=== PATIENT | male | born 1975 | race African-American/Black ===

== ENCOUNTER 2017-02-10 19:38 | Observation (INO) | payer MEDICAID, OTHER ==
[~2017-02-10] VITALS: Ht 165.1 cm; Wt 67.6 kg
[~2017-02-10 19:38] MED LIST: AGM875T PO; AMOX500C2 PO; AZIT250T81 PO; AZTH250C PO; CEPH500T PO; DICY10CA26 PO; FAMO-119 PO; GFCD10B PO; HYDR-3583 PO; HYDR1TAB PO; METH4TAB PO; NAPR-243; NAPR-243 PO; ONDAN4ODT PO; PNT40TEC PO; PROM25TA14 PO; SULF1TAB38 PO; TRAM50TA2 PO; TRIA16.5 NS
--- OUTSIDE RECORDS SUMMARY | 2017-02-10 19:42 | XMS REPORT ---
Author Author ESSENCE DRISCOLL [facility] eClinicalWorks Address Unknown Phone Unavailable Care Team Providers Care Anesthesiology Faculty Name Role Phone ESSENCE DRISCOLL CP Unavailable Allergies, Adverse Reactions, Alerts Substance Reaction Event Type N.K.D.A. 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 [address]-93 0.05 % Externally Twice a day Jan 29, 2015 1 application to affected area Procedures Procedure Coding System Code Date Office Visit, Est Pt., Level 3 CPT-4 13110 Jan 29, 2015 Vital Signs Date/Time: Jan 29, 2015 Temperature 97.8 F Weight 156.2 lbs Height 66 in BMI 25.21 Index Blood Pressure Diastolic 76 mmHg Blood Pressure Systolic 122 mmHg Cardiac Monitoring Heart Rate 68 bpm Results No Known Results Summary Purpose eClinicalWorks Submission
[2017-02-10] MEDS ORDERED: NS IV 1000 ML 1,000 ML IV ONE (19:47)
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
[2017-02-10 19:55] LABS: BASOPHILS % (AUTO) 1 % (0-10); EOSINOPHILS # (AUTO) 0.2 10^3/uL (0.0-0.3); EOSINOPHILS % (AUTO) 5 % (0-10); LYMPHOCYTES # (AUTO) 1.8 X 10^3 (1.0-4.0); LYMPHOCYTES % (AUTO) 41 % (12-44); MEAN CORPUSCULAR HEMOGLOBIN 32 PG (25-34); MEAN CORPUSCULAR HGB CONC 35 G/DL (32-36); MEAN CORPUSCULAR VOLUME 92 FL (80-99); MEAN PLATELET VOLUME 9.9 FL (7.4-10.4); MONOCYTES # (AUTO) 0.5 X 10^3 (0.0-1.0); MONOCYTES % (AUTO) 11 % (0-12); NEUTROPHILS # (AUTO) 1.9 X 10^3 (1.8-7.8); NEUTROPHILS % (AUTO) 43 % (42-75); PLATELET COUNT 208 10^3/uL (130-400); RED BLOOD COUNT 4.48 10^6/uL (4.35-5.85); RED CELL DISTRIBUTION WIDTH 13.3 % (10.0-14.5); WHITE BLOOD COUNT 4.4 10^3/uL (4.3-11.0)
[2017-02-10 19:58] LABS: BILIRUBIN,URINE NEGATIVE (NEGATIVE); KETONES,URINE NEGATIVE (NEGATIVE); LEUKOCYTE ESTERASE ,URINE 1+ (NEGATIVE); NITRITE,URINE NEGATIVE (NEGATIVE); PH,URINE 7 (5-9); PROTEIN,URINE NEGATIVE (NEGATIVE); UROBILINOGEN,URINE 4 MG/DL (NORMAL)
[2017-02-10 20:14] LABS: WBC,URINE RARE /HPF
[2017-02-10 20:15] LABS: ALANINE AMINOTRANSFERASE 24 U/L (0-55); ALBUMIN 3.9 GM/DL (3.2-4.5); ALCOHOL < 10 MG/DL (<10); ANION GAP 9 MMOL/L (5-14); ASPARTATE AMINO TRANSFERASE 26 U/L (5-34); BILIRUBIN,TOTAL 0.6 MG/DL (0.1-1.0); BLOOD UREA NITROGEN 15 MG/DL (7-18); BUN/CREATININE RATIO 15; CARBON DIOXIDE 27 MMOL/L (21-32); CHLORIDE 104 MMOL/L (98-107); CREATININE SERUM 1.01 MG/DL (0.60-1.30); GFR ESTIMATED > 60; GLUCOSE 99 MG/DL (70-105); POTASSIUM 3.5 MMOL/L (3.6-5.0); SALICYLATE < 5.0 MG/DL (5.0-20.0); SODIUM 140 MMOL/L (135-145); TOTAL PROTEIN 7.2 GM/DL (6.4-8.2)
[2017-02-10 20:25] LABS: ACETAMINOPHEN < 10 UG/ML (10-30)
--- NOTE | 2017-02-10 20:43 | Diagnostic Imaging Report ---
EXAMINATION: Chest radiograph, portable AP view. DATE: February 10, 2017 at 2018 hours. INDICATION: 42-year-old male, altered mental status. Unresponsive. COMPARISON: September 19, 2014. FINDINGS: Heart size and mediastinal contours are unremarkable given technique. There is no identified pneumothorax. There is no large pleural effusion. There is no identified focal airspace consolidation. IMPRESSION: No identified acute cardiopulmonary abnormality. Dictated by: Dictated on workstation # [id number]
--- NOTE | 2017-02-10 20:46 | Diagnostic Imaging Report ---
PROCEDURE: CT head without contrast. TECHNIQUE: Multiple contiguous axial images were obtained through the brain without the use of intravenous contrast. DATE: February 10, 2017. COMPARISON: None. INDICATION: 42-year-old male, altered mental status, unresponsive. FINDINGS: The ventricles and cerebral spinal fluid spaces are of normal size and configuration for the patient's age. There is no mass effect or midline shift. There is no acute intracranial hemorrhage. There is no abnormal extra-axial fluid collection. The visualized portions of the paranasal sinuses, mastoid air cells and middle ears are well aerated. IMPRESSION: 1. No identified acute intracranial abnormality. Dictated by: Dictated on workstation # [id number]
[2017-02-10 22:05] VITALS: BP 120/67
[2017-02-10] MEDS: NS IV 1000 ML 1,000 ML IV SCH (22:14)
[2017-02-10] MEDS ORDERED: IBUPROFEN 800 MG (MOTRIN) TAB PO PRN (22:15)
[2017-02-10] MEDS ORDERED: ONDANSETRON 4 MG/2 ML (SDV) Z0FRAN IV PRN (22:15)
[2017-02-10] MEDS ORDERED: ACETAMINOPHEN 500 MG TAB (TYLENOL) PO PRN (22:15)
[2017-02-11] VITALS: BP 98/58
[2017-02-11 04:00] VITALS: BP 103/57
[2017-02-11] MEDS: NS IV 1000 ML 1,000 ML IV SCH ×2 (04:56→11:35)
[2017-02-11 06:12] LABS: BASOPHILS % (AUTO) 1 % (0-10); EOSINOPHILS # (AUTO) 0.2 10^3/uL (0.0-0.3); EOSINOPHILS % (AUTO) 5 % (0-10); LYMPHOCYTES # (AUTO) 1.6 X 10^3 (1.0-4.0); LYMPHOCYTES % (AUTO) 41 % (12-44); MEAN CORPUSCULAR HEMOGLOBIN 32 PG (25-34); MEAN CORPUSCULAR HGB CONC 35 G/DL (32-36); MEAN CORPUSCULAR VOLUME 92 FL (80-99); MEAN PLATELET VOLUME 9.4 FL (7.4-10.4); MONOCYTES # (AUTO) 0.4 X 10^3 (0.0-1.0); MONOCYTES % (AUTO) 10 % (0-12); NEUTROPHILS # (AUTO) 1.7 X 10^3 (1.8-7.8); NEUTROPHILS % (AUTO) 44 % (42-75); PLATELET COUNT 186 10^3/uL (130-400); RED BLOOD COUNT 4.43 10^6/uL (4.35-5.85)
[2017-02-11 06:27] LABS: ANION GAP 6 MMOL/L (5-14); BLOOD UREA NITROGEN 11 MG/DL (7-18); BUN/CREATININE RATIO 16; CALCIUM 8.1 MG/DL (8.5-10.1); CARBON DIOXIDE 24 MMOL/L (21-32); CHLORIDE 111 MMOL/L (98-107); GFR ESTIMATED > 60; GLUCOSE 88 MG/DL (70-105); POTASSIUM 3.8 MMOL/L (3.6-5.0); SODIUM 141 MMOL/L (135-145)
[2017-02-11] MEDS ORDERED: CATHETER FLUSH 10 ML SYR IV PRN (07:00)
[2017-02-11 08:45] VITALS: BP 121/85
[2017-02-11 11:30] VITALS: BP 126/77
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
--- NOTE | 2017-02-11 14:38 | Discharge Instructions ---
Discharge [facility] Discharge Medications New, Converted or Re-Newed RX: Other (no prescriptions) Patient Instructions Patient Instructions Patient not to take any medications that are not prescribed to him. Keep follow up appointment. Goal/Follow Up Appt: Follow up with Dr. Puri 02/17/17 at 1:40 PM Patient Instructions: Do not take medications not prescribed to you, refrain from marijuana use Activity & Diet Discharge Diet: No Restrictions Activity as Tolerated: Yes CARI MORGAN DO Feb 11, 2017 14:38
== END 2017-02-11 14:30 | disposition home or self-care (01) ==
LOC: EDUNIT# 19:38 → ER 19:38 → UNDOADMOB 21:16 → 4TH 21:16 → UNDODISOB 02-11 16:00
PROVIDERS: ADMIT Pediatrics; ATTEND Pediatrics
DX: R40.0 Somnolence (principal); F13.10 Sedative, hypnotic or anxiolytic abuse, uncomplicated; F12.10 Cannabis abuse, uncomplicated; Z90.5 Acquired absence of kidney
CPT/HCPCS: 36415; 70450; 71010; 80048; 80053; 80306; 80320; 80329; 81000; 83605; 85025; 93005; 93041; 94760; G0378

== ENCOUNTER 2018-02-14 09:37 | Emergency (ER) | payer MEDICAID ==
[~2018-02-14] VITALS: Ht 167.6 cm; Wt 68.0 kg
--- NOTE | 2018-02-14 10:24 | ED Integumentary General ---
General Chief Complaint: Skin/Wound Problems Stated Complaint: BUMPS ALL OVER Nursing Triage Note: pt presents to ed with complaints of rash on r/l legs and upper bag. Source: patient Exam Limitations: no limitations History of Present Illness Date Seen by Provider: Feb 14, 2018 Time Seen by Provider: 10:11 Initial Comments The patient presents to the ER by private conveyance with chief complaint that he is was mostly been living in motels for the past few years. And for the past 5 months she's had some itchy ulcer spots all over his skin starting on his legs and now is got some on his arms and migrating up the his back and shoulders and neck. No fevers chills or other medical illnesses. Does not take any medicines. No nausea vomiting chills Allergies and Home Medications Allergies Coded Allergies: No Known Drug Allergies (Verified , 09/03/11) Home Medications No Active Prescriptions or Reported Meds Patient Home Medication List Home Medication List Reviewed: Yes Review of Systems Review of Systems Constitutional: No chills, No diaphoresis EENTM: No ear discharge, No ear pain Respiratory: No short of breath Cardiovascular: No chest pain, No edema Gastrointestinal: No nausea, No vomiting Past Xyxmelr-Cetlkk-Bvshlw Hx Patient Social History Alcohol Use: Occasionally Uses Number of Drinks Today: AA Alcohol Beverage of Choice: Beer Recreational Drug Use: Yes ('[employer]EN [employer]') Smoking Status: Current Everyday Smoker 2nd Hand Smoke Exposure: Yes Recent Foreign Travel: No Contact w/Someone Who Travel: No Recent Infectious Disease Expo: No Recent Hopitalizations: No Physical Abuse: No Sexual Abuse: No Mistreated: No Fear: No Immunizations Up To Date Tetanus Booster (TDap): Less than 5yrs Date of Pneumonia Vaccine: Jul 07, 2011 Date of Influenza Vaccine: Jan 16, 2011 Seasonal Allergies Seasonal Allergies: No Past Medical History Surgeries: Yes (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) Nephrectomy Respiratory: No Cardiac: No Neurological: No Reproductive Disorders: No Genitourinary: No Gastrointestinal: No Musculoskeletal: No Endocrine: No HEENT: No Cancer: No Psychosocial: No Integumentary: No Blood Disorders: No Adverse Reaction/Blood Tranf: No Family Medical History Heart Disease Physical Exam Vital Signs Vital Signs - First Documented 02/14/18 09:48 Temp 98.2 Pulse 76 Resp 20 B/P (MAP) 141/87 (105) Pulse Ox 98 Capillary Refill : Less Than 3 Seconds General Appearance: WD/WN, no apparent distress HEENT: PERRL/EOMI, pharynx normal Neck: non-tender, normal inspection Cardiovascular: normal peripheral pulses, regular rate, rhythm Respiratory: no respiratory distress, no accessory muscle use Neurologic/Psychiatric: alert, oriented x 3 Skin: rash (dry skin with small 1-3 mm wide and excoriated lesions some of which are in a semicircular patterns consistent with scabies), other ( seborrheic keratosis on the occipital scalp.) Progress/Results/Core Measures Results/Orders Vital Signs/I&O 02/14/18 09:48 Temp 98.2 Pulse 76 Resp 20 B/P (MAP) 141/87 (105) Pulse Ox 98 Blood Pressure Mean: 105 Progress Progress Note : Time: 10:22 Progress Note If the seborrheic keratosis on his scalp line is bothering him we have offered a referral to general surgery to have it clipped off. We will put him on permethrin. Departure Impression Primary Impression: Scabies infestation Additional Impression: Seborrheic keratosis Disposition: 01 HOME, SELF-CARE Condition: Stable Departure-Patient Inst. Decision time for Depature: 10:24 Referrals: CADENCE BARILLAS,LOCAL PHYSICIAN (PCP) Primary Care Physician Patient Instructions: Scabies (DC) Add. Discharge Instructions: Apply the permethrin from your head down after a bath at night and then put on pajamas and next morning he can wash it off in the shower. Clean everything in the house change sheets and linens and vacuum the floors. 2 weeks later repeat the process same way. If you have itching you can use one tablet of Claritin or Zyrtec every day with one tablet of Benadryl every 6 hours as needed for breakthrough itching. Apply the ointment for your skin such as Nutraderm, CeraVe, Cetaphil etc. daily after bathing for skin health. All discharge instructions reviewed with patient and/or family. Voiced understanding. Scripts Permethrin (Permethrin) 60 Gm Cream..g. 60 GM TP ONCE for 14 Days, #2 TUBE 0 Refills Prov: NADER STRE[address] 02/14/18 Copy Copies To 1: CADENCE BARILLAS TITUS J Feb 14, 2018 10:24
[2018-02-14] MEDS ORDERED: PERM60CR4 TP (10:26)
[2018-02-14 10:41] VITALS: BP 136/90
== END 2018-02-14 10:41 | disposition home or self-care (01) ==
LOC: ER 09:37 → EDUNIT# 09:37 → ER 10:41
DX: B86 Scabies (principal); L82.1 Other seborrheic keratosis; F17.200 Nicotine dependence, unspecified, uncomplicated; Z90.5 Acquired absence of kidney
CPT/HCPCS: 99282

== ENCOUNTER → 2018-02-28 | Emergency (ER) | payer MEDICAID ==
[~2018-02-28] VITALS: Ht 167.6 cm; Wt 68.0 kg
[~2018-02-28] MED LIST changes: +PERM60CR4 TP
--- NOTE | 2018-02-28 16:05 | ED Integumentary General ---
General Chief Complaint: Skin/Wound Problems Stated Complaint: GROIN INFLAMED Nursing Triage Note: PT STATES HAS WART LIKE LESIONS ON GROIN AREA NOTICED AFTER SHAVING APPROX 2 WEEKS AGO. PT STATES AFRAID MIGHT BE STD BECAUSE EX- CHEATED ON HIM. PT WAS TREATED APPROX 2 WEEKS AGO FOR SCABIES Source: patient Exam Limitations: no limitations History of Present Illness Date Seen by Provider: Feb 28, 2018 Time Seen by Provider: 16:00 Initial Comments Patient is a 43-year-old male who presents to the emergency room with complaints of a bumps to his right groin area for the past 2 weeks. He reports that he was recently treated for scabies with permethrin cream 2 weeks ago and shaved his entire body to allow the cream to absorb into his skin better. He noticed the bumps after shaving. He denies pain, he denies the bumps coming and going, denies any blisters, bleeding. Timing/Duration: week (2 weeks ago) Location: genitalia Possible Cause: other (bumps) Allergies and Home Medications Allergies Coded Allergies: No Known Drug Allergies (Verified , 09/03/11) Home Medications Permethrin 60 Gm Cream..g., 60 GM TP ONCE Prescribed by: NADER STREET on 02/14/18 1026 Patient Home Medication List Home Medication List Reviewed: Yes Review of Systems Review of Systems Constitutional: see HPI; No chills, No fever Genitourinary: see HPI, other Skin: see HPI, rash All Other Systems Reviewed Negative Unless Noted: Yes Past Ygjvemp-Khsbnm-Vcgaut Hx Past Med/Social Hx: Reviewed Nursing Past Med/Soc Hx Patient Social History Alcohol Use: Occasionally Uses Number of Drinks Today: AA Alcohol Beverage of Choice: Beer Recreational Drug Use: Yes (POT) Smoking Status: Current Everyday Smoker Type Used: Cigarettes 2nd Hand Smoke Exposure: Yes Recent Foreign Travel: No Contact w/Someone Who Travel: No Recent Infectious Disease Expo: No Recent Hopitalizations: No Physical Abuse: No Sexual Abuse: No Immunizations Up To Date Tetanus Booster (TDap): Less than 5yrs Date of Pneumonia Vaccine: Jul 07, 2011 Date of Influenza Vaccine: Jan 16, 2011 Seasonal Allergies Seasonal Allergies: No Past Medical History Surgeries: Yes (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) Nephrectomy Respiratory: No Cardiac: No Neurological: No Reproductive Disorders: No Genitourinary: No Gastrointestinal: No Musculoskeletal: No Endocrine: No HEENT: No Cancer: No Psychosocial: No Integumentary: No Blood Disorders: No Adverse Reaction/Blood Tranf: No Family Medical History Reviewed Nursing Family Hx Heart Disease Physical Exam Vital Signs Vital Signs - First Documented 02/28/18 15:40 Temp 97.9 Pulse 120 Resp 18 B/P (MAP) 120/103 (109) Pulse Ox 99 Capillary Refill : Less Than 3 Seconds General Appearance: WD/WN, no apparent distress Neck: non-tender, full range of motion, supple, normal inspection Cardiovascular: normal peripheral pulses, regular rate, rhythm, no edema, no gallop, no JVD, no murmur Respiratory: chest non-tender, lungs clear, normal breath sounds, no respiratory distress, no accessory muscle use Skin: normal color, warm/dry Skin Problem Location: other (inner thighs and pubic area. Razor burn/skin irritation) Skin Problem Character: rash, swelling Progress/Results/Core Measures Results/Orders Vital Signs/I&O 02/28/18 02/28/18 15:40 16:18 Temp 97.9 97.9 Pulse 120 120 Resp 18 18 B/P (MAP) 120/103 (109) 120/103 (109) Pulse Ox 99 99 Blood Pressure Mean: 109 Departure Impression Primary Impression: Skin irritation from shaving Disposition: 01 HOME, SELF-CARE Condition: Stable/Unchanged Departure-Patient Inst. Decision time for Depature: 16:10 Referrals: NO,LOCAL PHYSICIAN (PCP) Primary Care Physician Patient Instructions: Itchy Skin, LOCAL PHYSICIAN LIST Add. Discharge Instructions: Continue the permethrin as previously prescribed. Do not shave until the skin irritation has healed. Follow-up with your primary care provider within 1 week for recheck. Return back to the emergency room for any worsening symptoms or concerns as needed. All discharge instructions reviewed with patient and/or family. Voiced understanding. MARIANA GEORGE Feb 28, 2018 16:05
[2018-02-28 16:18] VITALS: BP 120/103
== END | disposition home or self-care (01) ==
LOC: EDUNIT# 15:38 → ER 15:40
DX: L98.9 Disorder of the skin and subcutaneous tissue, unspecified (principal); F12.10 Cannabis abuse, uncomplicated; F17.210 Nicotine dependence, cigarettes, uncomplicated; Z90.5 Acquired absence of kidney; Z82.49 Family history of ischemic heart disease and other diseases of the circulatory system
CPT/HCPCS: 99282